=== PATIENT | male | born 1970 | race Caucasian/White ===

== ENCOUNTER 2018-04-12 11:53 | Emergency (ER) | payer MEDICAID ==
[~2018-04-12] VITALS: Ht 154.9 cm; Wt 49.9 kg
[2018-04-12 11:56] VITALS: BP 129/89
--- NOTE | 2018-04-12 12:00 | NUR ---
pt. brought in by ems from [facility] sent from facility for further eval of abnormal lab values; acute renal failure labs drawn 04/08/2018 BUN 62, CREATININE 2.2. pt. present with contractures of all extremities, rr even and unlabored. pt. is smiling. pt. warm and dry to touch. vss. pt. presents with clean diaper in place. er md notified. will continue to monitor. safety precautions implemented. caregiver at bedside.
[2018-04-12] MEDS ORDERED: NACL 0.9% 1,000 ML IV ONE (12:10)
--- NOTE | 2018-04-12 12:10 | NUR ---
# 14 FR Horn catheter . Immediate return of YELLOW URINE 20 ml urine noted. Bedside drainage bag placed below level of bladder. Urine sample collected and sent to lab. Pt tolerated procedure WELL.
[2018-04-12] MEDS ORDERED: SUCR1TAB35 PO (12:19)
[2018-04-12] MEDS ORDERED: [UNRECOGNIZED DRUG - CODE] (12:19)
[2018-04-12] MEDS ORDERED: METO-744 PO (12:19)
[2018-04-12] MEDS ORDERED: LANS15EC28 PO (12:19)
[2018-04-12] MEDS ORDERED: CHOL400T12 PO (12:19)
[2018-04-12] MEDS ORDERED: LORA0.5T6 PO (12:19)
[2018-04-12] MEDS ORDERED: DOCU-299 PO (12:19)
[2018-04-12] MEDS ORDERED: BISA5ECT43 PO (12:19)
[2018-04-12] MEDS ORDERED: HAL5 PO (12:19)
[2018-04-12] MEDS ORDERED: FERR325E14 PO (12:19)
[2018-04-12] MEDS ORDERED: BACL10TA4 PO (12:19)
[2018-04-12] MEDS ORDERED: ASCO500T93 PO (12:20)
--- NOTE | 2018-04-12 12:45 | NUR ---
pt. taken to ct scan via gurney by trade manager. caregiver at bedside.
[2018-04-12 13:03] LABS: BASOPHILS % (AUTO) 0.3 % (0.0-2.0); EOSINOPHILS # (AUTO) 0.1 K/uL (0-0.4); EOSINOPHILS % (AUTO) 1.7 % (0.0-4.0); HEMATOCRIT 42.4 % (36-52); HEMOGLOBIN 14.5 g/dL (12.0-18.0); LYMPHOCYTES # (AUTO) 1.2 K/uL (2.0-11.5); LYMPHOCYTES % (AUTO) 21.2 % (20.5-51.1); MEAN CORPUSCULAR HEMOGLOBIN 32 pg (27-31); MEAN CORPUSCULAR HGB CONC 34 g/dL (33-37); MEAN CORPUSCULAR VOLUME 93.5 fL (80-94); MONOCYTES # (AUTO) 0.5 K/uL (0.8-1.0); MONOCYTES % (AUTO) 9.3 % (1.7-9.3); NEUTROPHILS # (AUTO) 3.8 K/uL (1.8-7.7); NEUTROPHILS % (AUTO) 67.5 % (42.2-75.2); PLATELET COUNT (AUTO) 251 K/uL (140-450); RED BLOOD CELL COUNT(AUTO) 4.54 MIL/uL (4.20-6.10); RED CELL DISTRIBUTION WIDTH 12.7 % (11.6-13.7); WHITE BLOOD COUNT (AUTO) 5.7 K/uL (4.8-10.8)
[2018-04-12 13:17] LABS: PROTHROMBIN TIME 9.9 secs (10.8-13.4)
[2018-04-12 13:21] LABS: CARBON DIOXIDE 25.7 mmol/L (21-32); CREATININE 0.6 mg/dL (0.7-1.3); POTASSIUM 3.7 mmol/L (3.5-5.1)
[2018-04-12 13:31] LABS: ALBUMIN 3.3 g/dL (3.4-5.0); TOTAL BILIRUBIN 0.2 mg/dL (0.0-1.0)
[2018-04-12 14:03] VITALS: BP 106/75
--- NOTE | 2018-04-12 14:04 | NUR ---
Patient discharged with v/s stable. Written and verbal after care instructions given and explained. Patient CAREGIVER verbalized understanding, with caregiver. All questions addressed prior to discharge. Advised to follow up with PMD.
--- NOTE | 2018-04-12 14:37 | NUR ---
CAREGIVER STATED SHE FOUND A RIDE FOR PT. AWAITING ARRIVAL.
== END 2018-04-12 14:04 | disposition home or self-care (01) ==
LOC: MED 11:53
DX: R79.9 Abnormal finding of blood chemistry, unspecified (principal); K21.9 Gastro-esophageal reflux disease without esophagitis; Z79.899 Other long term (current) drug therapy
CPT/HCPCS: 36415; 74176; 80053; 85025; 85610; 85730; 96360; 99285; C1758; J7030

== ENCOUNTER 2019-10-08 10:06 | Emergency (ER) | payer MEDICAID ==
[~2019-10-08] VITALS: Ht 154.9 cm; Wt 52.2 kg
[~2019-10-08 10:06] MED LIST: ASCO500T93 PO; BACL10TA4 PO; BISA-188 PO; CHOL400T12 PO; DOCU-299 PO; FERR325E14 PO; HAL5 PO; LANS15EC28 PO; LORA0.5T6 PO; METO-744 PO; SUCR1TAB35 PO; [UNRECOGNIZED DRUG - CODE]
[2019-10-08 10:16] VITALS: BP 101/65
[2019-10-08] MEDS ORDERED: MORPHINE SULFATE 2 MG/ML SYR IVP ONE (10:20)
[2019-10-08] MEDS ORDERED: FLOR250 PO (10:40)
[2019-10-08] MEDS ORDERED: ESOM40EC PO (10:40)
[2019-10-08] MEDS ORDERED: SUCR1TAB35 PO (10:40)
[2019-10-08] MEDS ORDERED: MAGN2400 PO (10:40)
[2019-10-08] MEDS ORDERED: ACET-2619 PO (10:40)
[2019-10-08] MEDS ORDERED: ATOR10TA PO (10:40)
[2019-10-08] MEDS ORDERED: KETOROLAC 30 MG/ML VIAL IVP ONE (11:45)
[2019-10-08 12:46] VITALS: BP 103/59
== END 2019-10-08 12:47 | disposition home or self-care (01) ==
LOC: MED 10:06
DX: S92.001A Unspecified fracture of right calcaneus, initial encounter for closed fracture (principal); G82.50 Quadriplegia, unspecified; K21.9 Gastro-esophageal reflux disease without esophagitis; Z79.899 Other long term (current) drug therapy; W17.89XA Other fall from one level to another, initial encounter; Y93.89 Activity, other specified; Y92.89 Other specified places as the place of occurrence of the external cause; Y99.8 Other external cause status
CPT/HCPCS: 29515; 70450; 73521; 73610; 96374; 96375; 99284; J1885; J2270; Q0092

== ENCOUNTER 2021-04-17 12:01 | Emergency (ER) | payer MEDICAID ==
[~2021-04-17] VITALS: Ht 154.9 cm; Wt 52.2 kg
[~2021-04-17 12:01] MED LIST changes: +ACET-2619 PO; +ATOR10TA PO; +ESOM40EC PO; +FLOR250 PO; -LANS15EC28 PO; +MAGN2400 PO
[2021-04-17 12:03] VITALS: BP 108/75
--- NOTE | 2021-04-17 12:03 | NUR ---
PT BIBA AND TAKEN TO BED 12
--- NOTE | 2021-04-17 12:14 | NUR ---
50 Y MALE BIB FROM [facility]IV[facility] DUE TO CHOKING EARLIER TODAY ON BURRITO. PER EMS "PT WAS BEING FED BY CAREGIVER SMALL AMOUNTS OF A BURRITO WHEN SHE STARTED TO CHOKE. THE CAREGIVER PUSHED HIM TO THE SIDE WHEN HE STARTED TO SPIT UP." PER CAREGIVER AFTERWARDS PT WAS EXPERICNING ALOC. PER EMS PT IS NOW BACK TO BASELINE, LAUGHING AND LOOKING AROUND. PT BASELINE NON-VERBAL, GCS CURRENTLY 9. BREATH SOUNDS CLEAR AT THIS TIME. NO SIGNS OF DISCOMFORT NOTED PMH: CP, DEVELOPMENTAL DISABILITY NKA
--- NOTE | 2021-04-17 13:00 | NUR ---
PT TAKEN TO XRAY/CT VIA ARSEN
--- NOTE | 2021-04-17 13:03 | NUR ---
Adrienne johnson in ED - 04/17/21 at 1351 by [email or web address] ED BEDSIDE WITH PATIENT
--- NOTE | 2021-04-17 13:15 | NUR ---
# 15 FR Horn catheter utilizing sterile technique. Immediate return of 95 ml yellow urine noted. Urine sample collected and sent to lab. Pt tolerated procedure well.
--- NOTE | 2021-04-17 13:15 | NUR ---
CLARA HANDED TO CPT EDIN AT ER BEDSIDE
--- NOTE | 2021-04-17 13:28 | NUR ---
PT RETURNED TO BED [address] [facility] [facility]
[2021-04-17 13:56] LABS: APPEARANCE,URINE CLEAR (CLEAR); BILIRUBIN,URINE NEGATIVE (NEGATIVE); BLOOD, URINE NEGATIVE (NEGATIVE); COLOR,URINE YELLOW (YELLOW); LEUKOCYTE ESTERASE ,URINE NEGATIVE (NEGATIVE); NITRITE, URINE NEGATIVE (NEGATIVE); PH,URINE 7.5 (5.0-9.0); UGLUCOSE NEGATIVE (NEGATIVE)
--- NOTE | 2021-04-17 13:57 | NUR ---
Patient appears to be resting comfortably in bed. Vital Signs within normal limits. Respirations even and unlabored.
[2021-04-17 13:59] LABS: BASOPHILS % (AUTO) 0.3 % (0.0-2.0); EOSINOPHILS # (AUTO) 0.2 K/uL (0-0.4); EOSINOPHILS % (AUTO) 2.8 % (0.0-4.0); HEMOGLOBIN 14.6 g/dL (12.0-18.0); LYMPHOCYTES # (AUTO) 1.4 K/uL (2.0-11.5); LYMPHOCYTES % (AUTO) 23.4 % (20.5-51.1); MEAN CORPUSCULAR HEMOGLOBIN 33 pg (27-31); MEAN CORPUSCULAR HGB CONC 35 g/dL (33-37); MEAN CORPUSCULAR VOLUME 94.2 fL (80-94); MONOCYTES # (AUTO) 0.5 K/uL (0.8-1.0); MONOCYTES % (AUTO) 8.9 % (1.7-9.3); NEUTROPHILS # (AUTO) 3.9 K/uL (1.8-7.7); NEUTROPHILS % (AUTO) 64.6 % (42.2-75.2); PLATELET COUNT (AUTO) 297 K/uL (140-450); RED BLOOD CELL COUNT(AUTO) 4.46 MIL/uL (4.20-6.10); RED CELL DISTRIBUTION WIDTH 12.9 % (11.6-13.7)
[2021-04-17 14:19] LABS: ANION GAP 9.9 (8-16); CARBON DIOXIDE 29.5 mmol/L (21-32); CREATININE 0.6 mg/dL (0.6-1.3); POTASSIUM 4.4 mmol/L (3.5-5.1)
--- NOTE | 2021-04-17 14:51 | NUR ---
SPOKE WITH BRIAN LORD IN REGARDS TO PT CARE AND TRANSPORATION. PER BRIAN SHE WILL ARRANGE FOR PT TRANSPORATION AND CALL WITH AN ETA
--- NOTE | 2021-04-17 16:15 | NUR ---
Patient appears to be resting comfortably in bed. Vital Signs within normal limits. Respirations even and unlabored.
[2021-04-17 17:30] VITALS: BP 112/73
--- NOTE | 2021-04-17 17:30 | NUR ---
Patient discharged with v/s stable. Written and verbal after care instructions given and explained. Patient verbalized understanding. Wheel Chair Assisted with to fci. All questions addressed prior to discharge. Advised to follow up with PMD.
== END 2021-04-17 17:30 | disposition home or self-care (01) ==
LOC: MED 12:01
DX: T17.928A Food in respiratory tract, part unspecified causing other injury, initial encounter (principal); R41.82 Altered mental status, unspecified; K21.9 Gastro-esophageal reflux disease without esophagitis; I10 Essential (primary) hypertension; Z79.899 Other long term (current) drug therapy; X58.XXXA Exposure to other specified factors, initial encounter; Y93.89 Activity, other specified; Y92.89 Other specified places as the place of occurrence of the external cause; Y99.8 Other external cause status
CPT/HCPCS: 36415; 70450; 71045; 80048; 81003; 85025; 99285; Q0092

== ENCOUNTER 2021-10-06 08:45 | Inpatient (IN) | payer MEDICAID ==
[~2021-10-06] VITALS: Ht 154.9 cm; Wt 49.9 kg
[~2021-10-06 08:45] MED LIST changes: +LACT10CA GT; +LANS30EC68 GT; +TOP25 GT
[2021-10-06] MEDS ORDERED: NACL 0.9% 2,000 ML IV ONE (09:00)
[2021-10-06 09:18] VITALS: BP 112/63
--- NOTE | 2021-10-06 09:19 | NUR ---
ATTEMPTED EKG HOWEVER PT WAS SHAKING AND SCREAMING. A RESULT, ARTIFACTS WERE OBSERVED ON EKG RENDERING IT UNREADABLE. WILL ATTEMPT TO RETRY EKG ONCE PT CALMS DOWN. Addendum: 10/06/21 at 0942 by [email or web address] ATTEMPTED EKG HOWEVER PT WAS SHAKING AND SCREAMING. A RESULT, ARTIFACTS WERE OBSERVED ON EKG RENDERING IT UNREADABLE. WILL ATTEMPT TO RETRY EKG ONCE PT CALMS DOWN. ERMD NOTIFIED AND AWARE.
[2021-10-06] MEDS ORDERED: LORazepam 2 MG/ML VIAL IVP ONE (09:25)
[2021-10-06] MEDS ORDERED: cefTRIAXone 1,000 MG VIAL ONE (09:52)
[2021-10-06 10:51] LABS: BASOPHILS % (AUTO) 0.4 % (0.0-2.0); EOSINOPHILS % (AUTO) 0.7 % (0.0-4.0); HEMATOCRIT 39.9 % (36-52); HEMOGLOBIN 13.5 g/dL (12.0-18.0); LYMPHOCYTES # (AUTO) 0.8 K/uL (2.0-11.5); LYMPHOCYTES % (AUTO) 11.9 % (20.5-51.1); MEAN CORPUSCULAR HEMOGLOBIN 32 pg (27-31); MEAN CORPUSCULAR HGB CONC 34 g/dL (33-37); MEAN CORPUSCULAR VOLUME 93.3 fL (80-94); MONOCYTES # (AUTO) 0.7 K/uL (0.8-1.0); MONOCYTES % (AUTO) 10.6 % (1.7-9.3); NEUTROPHILS # (AUTO) 5.3 K/uL (1.8-7.7); NEUTROPHILS % (AUTO) 76.4 % (42.2-75.2); PLATELET COUNT (AUTO) 271 K/uL (140-450); RED BLOOD CELL COUNT(AUTO) 4.28 MIL/uL (4.20-6.10); RED CELL DISTRIBUTION WIDTH 13.1 % (11.6-13.7)
[2021-10-06 11:04] LABS: SALICYLATE < 2.8 mg/dL (2.8-20.0)
[2021-10-06 11:56] LABS: ALBUMIN 3.7 g/dL (3.4-5.0); ANION GAP 16.1 (8-16); ASPARTATE AMINOTRANSFERASE 30 U/L (15-37); CARBON DIOXIDE 24.6 mmol/L (21-32); CHLORIDE 103 mmol/L (98-107); CREATININE 0.6 mg/dL (0.6-1.3); GFR ARICAN-AMERICAN 184 mL/min (>90); GLUCOSE 112 mg/dL (74-106); POTASSIUM 3.7 mmol/L (3.5-5.1); SODIUM SERUM 140 mmol/L (136-145); TOTAL BILIRUBIN 0.3 mg/dL (0.0-1.0); UREA NITROGEN, BLOOD 8 mg/dL (7-18)
[2021-10-06] MEDS: DEXT 5% / NACL 0.45% 1,000 ML IV SCH ×2 (13:10→23:10)
[2021-10-06 13:26] LABS: ACETAMINOPHEN < 0.5 ug/ml (10-30)
[2021-10-06 13:50] VITALS: BP 73/47
--- NOTE | 2021-10-06 13:50 | NUR ---
PT ARRIVED ON TO UNIT VIA ARSEN, ACCOMPANIED BY ER NURSE AND TRANSPORTER. PT IS SLEEPING AT THIS TIME. RESPIRATIONS ARE EVEN AND UNLABORED. PT IS ON 5L 02 VIA NON-REBREATHER. PER [facility] VOICE TEACHER, PT HAS HX OF SLEEP APNEA. PT IS SNORING LOUDLY AT THIS TIME. PT IS NON-VERBAL AT BASELINE. ABD IS NONTENDER, NONDISTENDED. G TUBE NOTED TO L SIDE OF ABD. INTACT. PER ER NURSE, PT LAST BOWEL MOVEMENT WAS EARLIER TODAY. SKIN IS WARM, DRY, AND INTACT. PT HAS IV TO L HAND, 18G. MRSA SCREEN DONE, VITALS TAKEN. ALL SAFETY MEASURES IN PLACE. BED IN LOWEST POSITION. ADMISSION HISTORY TAKEN FROM [facility] VOICE TEACHER, PT IS NONVERBAL AND A&OX0. WILL CONTINUE TO MONITOR.
--- NOTE | 2021-10-06 14:12 | NUR ---
Patient will be admitted to care of DR VALLECILLO. Admited to TELE. Will go to room 121A. Belongings list completed. Report to AMOL.
[2021-10-06 15:45] LABS: APPEARANCE,URINE CLEAR (CLEAR); BILIRUBIN,URINE NEGATIVE (NEGATIVE); BLOOD, URINE 2+ (NEGATIVE); LEUKOCYTE ESTERASE ,URINE NEGATIVE (NEGATIVE); NITRITE, URINE NEGATIVE (NEGATIVE); PH,URINE 6.5 (5.0-9.0); UGLUCOSE NEGATIVE (NEGATIVE)
--- NOTE | 2021-10-06 15:45 | NUR ---
IV ACCESS TO R FA 22G PLACED. WILL CONTINUE TO MONITOR.
[2021-10-06 15:48] LABS: COLOR,URINE AMBER (YELLOW)
[2021-10-06 16:00] VITALS: BP 99/68
--- NOTE | 2021-10-06 16:22 | NUR ---
PT PULLED OUT IV TO RFA. WILL ATTEMPT ANOTHER IV ACCESS.
--- NOTE | 2021-10-06 17:45 | NUR ---
NEW IV ACCESS TO L WRIST, 24 G. WILL CONTINUE TO MONITOR.
[2021-10-06] MEDS ORDERED: MAGNESIUM HYDROXIDE GT/PO PRN (18:05)
[2021-10-06] MEDS ORDERED: bisacodyL 5 MG TABEC GT PRN (18:05)
[2021-10-06] MEDS ORDERED: LORazepam 2 MG/ML VIAL IVP PRN (18:05)
[2021-10-06] MEDS ORDERED: ACETAMINOPHEN 325 MG TAB GT SCH (18:05)
[2021-10-06] MEDS ORDERED: ONDANSETRON 4 MG/2 ML VIAL IVP PRN (18:05)
[2021-10-06] MEDS ORDERED: NON-FORMULARY ITEM (Metoprolol Succinate (Metoprolol Succinate Er) 25 MG) PO SCH (18:05)
[2021-10-06] MEDS ORDERED: METOPROLOL SUCCINATE 50 MG TABER PO SCH (18:33)
[2021-10-06] MEDS ORDERED: MAGNESIUM HYDROXIDE 2400 MG/30 ML UDC GT PRN (18:40)
[2021-10-06] MEDS ORDERED: MAGNESIUM HYDROXIDE 2400 MG/30 ML UDC PO PRN (18:40)
[2021-10-06] MEDS ORDERED: IPRATROPIUM 0.02% 0.5 MG/2.5 ML NEBU INH SCH (19:00)
[2021-10-06] MEDS ORDERED: ALBUTEROL 0.083% 2.5 MG/3 ML NEBU INH SCH (19:00)
--- NOTE | 2021-10-06 19:43 | NUR ---
ENDORSED PT TO HOTEL ASSISTANT GENERAL MANAGER NURSE FOR CONTINUITY OF CARE. PT IS STABLE.
--- NOTE | 2021-10-06 19:44 | NUR ---
RECEIVED REPORT FROM AM NURSE. PATIENT IS NON VERBAL, IN SEMI FOWLERS POSITION WITH EYES CLOSED. NO S/S OF RESPIRATORY DISTRESS. BREATHING REGULAR NON LABORED. ALL SAFETY MEASURES ARE IN PLACE. IVF D5NS INFUSING AT 100 ML/HR. O2 AT 4L NC SATING AT 100%. WILL CONTINUE TO MONITOR PT.
[2021-10-06 20:00] VITALS: BP 90/53
[2021-10-06] MEDS: ALBUTEROL SULFATE/IPRATROPIU 3 ML SOL IH SCH (20:29)
[2021-10-06] MEDS: ATORVASTATIN 20 MG TAB GT SCH (20:52)
[2021-10-06] MEDS: SUCRALFATE 1 GM TAB GT SCH (20:52)
--- NOTE | 2021-10-06 20:52 | NUR ---
ALL 2100 SCHEDULED MEDICATIONS ADMINISTERED PER MD ORDERED.
[2021-10-06] MEDS: HALOPERIDOL 5 MG TAB GT SCH (20:53)
[2021-10-06] MEDS ORDERED: CRUSHER, PILL MC ONE (20:56)
[2021-10-06] MEDS: VITAMIN D 400 IU TAB GT SCH (20:57)
[2021-10-06] MEDS ORDERED: FERROUS SULFATE 325 MG TABEC PO SCH (21:00)
[2021-10-06] MEDS ORDERED: ASCORBIC ACID 500 MG TAB GT SCH (21:00)
[2021-10-06] MEDS ORDERED: DOCUSATE SODIUM 100 MG GELCAP PO SCH (21:00)
--- NOTE | 2021-10-06 22:48 | NUR ---
BP - 87/[address] VALLECILLO, AWAITING FOR ORDERS.
--- NOTE | 2021-10-06 23:50 | NUR ---
DR. VALLECILLO CALLED BACK WITH ORDERS NOTED . CARRIED OUT.
[2021-10-06] MEDS ORDERED: NACL 0.9% 1,000 ML IV SCH (23:55)
[2021-10-07] VITALS: BP 141/85
[2021-10-07] MEDS: DEXT 5% / NACL 0.45% 1,000 ML IV SCH ×4 (00:11→13:38)
[2021-10-07] MEDS: ALBUTEROL SULFATE/IPRATROPIU 3 ML SOL IH SCH ×4 (01:00→19:36)
[2021-10-07 04:00] VITALS: BP 125/65
--- NOTE | 2021-10-07 05:58 | NUR ---
PATIENT IS AGITATED AND RESTLESS, ATIVAN PRN ADMINISTERED.
[2021-10-07 06:22] LABS: BASOPHILS % (AUTO) 0.4 % (0.0-2.0); EOSINOPHILS # (AUTO) 0.1 K/uL (0-0.4); EOSINOPHILS % (AUTO) 1.3 % (0.0-4.0); HEMOGLOBIN 12.2 g/dL (12.0-18.0); LYMPHOCYTES # (AUTO) 0.9 K/uL (2.0-11.5); LYMPHOCYTES % (AUTO) 12.5 % (20.5-51.1); MEAN CORPUSCULAR HEMOGLOBIN 32 pg (27-31); MEAN CORPUSCULAR HGB CONC 34 g/dL (33-37); MEAN CORPUSCULAR VOLUME 94.3 fL (80-94); MONOCYTES # (AUTO) 0.6 K/uL (0.8-1.0); MONOCYTES % (AUTO) 8.2 % (1.7-9.3); NEUTROPHILS # (AUTO) 5.3 K/uL (1.8-7.7); NEUTROPHILS % (AUTO) 77.6 % (42.2-75.2); PLATELET COUNT (AUTO) 255 K/uL (140-450); RED BLOOD CELL COUNT(AUTO) 3.82 MIL/uL (4.20-6.10); RED CELL DISTRIBUTION WIDTH 13.2 % (11.6-13.7); WHITE BLOOD COUNT (AUTO) 6.8 K/uL (4.8-10.8)
[2021-10-07 06:25] LABS: ANION GAP 13.5 (8-16); CARBON DIOXIDE 22.9 mmol/L (21-32); CREATININE 0.4 mg/dL (0.6-1.3); POTASSIUM 3.4 mmol/L (3.5-5.1)
--- NOTE | 2021-10-07 07:25 | NUR ---
ENDORSED PATIENT TO AM NURSE FOR CONTINUITY OF CARE.
--- NOTE | 2021-10-07 07:28 | NUR ---
RECEIVED REPORT FROM MACHINE CLOTHING REPLACER NURSE. PT. IS AOX0, ON 4L O2 N. PT IS BED BOUND. PT IS NPO. IV SITE ON RIGHT HAND 18G, AND LEFT WRIST 24G. SKIN IS INTACT. INFORMED BEATRICE ANDRES ABOUT PT TACHYCARDIA, AND REQUESTED TO CHANGE COLACE AND FERROUS SULFATE TO BE CHANGED TO LIQUID FORM. DISCUSSED PLAN OF CARE. ALL SAFETY MEASURES DONE. WILL CONTINUE TO MONITOR.
[2021-10-07] MEDS ORDERED: bisacodyL 5 MG TABEC GT PRN (07:31)
[2021-10-07] MEDS ORDERED: ACETAMINOPHEN 650 MG/20.3 ML UDC GT PRN (07:35)
[2021-10-07 08:00] VITALS: BP 118/68
[2021-10-07] MEDS: LACTOBACILLUS RHAMNOSUS GG 1 EACH CAP GT SCH (08:40)
[2021-10-07] MEDS: SUCRALFATE 1 GM TAB GT SCH ×2 (08:41→22:55)
[2021-10-07] MEDS: LANSOPRAZOLE 30 MG CAPDR GT SCH (08:41)
[2021-10-07] MEDS: FERROUS SULFATE 300 MG/5 ML UDC GT SCH ×2 (08:41→22:54)
[2021-10-07] MEDS: DOCUSATE 100 MG/10 ML UDC GT SCH ×2 (08:41→22:54)
[2021-10-07] MEDS: BACLOFEN 10 MG TAB GT SCH ×3 (08:42→17:05)
[2021-10-07] MEDS: LORazepam 0.5 MG TAB GT SCH (08:42)
[2021-10-07] MEDS: HALOPERIDOL 5 MG TAB GT SCH ×2 (08:43→22:58)
[2021-10-07] MEDS: ASCORBIC ACID 500 MG/5 ML ORASYR GT SCH ×2 (08:44→23:02)
[2021-10-07] MEDS: SORBITOL 70% 30 ML UDC GT SCH (08:44)
[2021-10-07] MEDS: METOPROLOL SUCCINATE 50 MG TABER PO SCH (08:44)
[2021-10-07] MEDS: VITAMIN D 400 IU TAB GT SCH ×2 (08:46→22:57)
[2021-10-07] MEDS ORDERED: NON-FORMULARY ITEM (Saccharomyces Boulardii* (Florastor*) 250 MG) GT SCH (09:00)
[2021-10-07] MEDS ORDERED: LACTOBACILLUS RHAMNOSUS GG 1 EACH CAP GT SCH (09:00)
[2021-10-07] MEDS ORDERED: TOPIRAMATE 25 MG TAB GT SCH (09:00)
[2021-10-07] MEDS ORDERED: NON-FORMULARY ITEM (Esomeprazole Magnesium* (Nexium*) 1 CAP) GT SCH (09:00)
[2021-10-07 12:00] VITALS: BP 100/59
--- NOTE | 2021-10-07 13:20 | NUR ---
PT K IS 3.4. RELAYED IT TO BEATRICE ANDRES IF PT CAN HAVE POTASSIUM MEDS.
--- NOTE | 2021-10-07 13:39 | NUR ---
STARTED NEW IV 5% DEX AND .45% NACL, RUNNING AT 100ML/HR.
--- NOTE | 2021-10-07 13:50 | NUR ---
STEFFEN CALLED, ASKING ABOUT PT'S CONDITION. RELAYED THAT PT STILL NEEDS TO DO SOME BLOOD TESTS, FOR PT.
--- NOTE | 2021-10-07 14:41 | NUR ---
DC PLANNING: THE PATIENT WAS BIB[facility] FROM [facility] WITH C/O ALOC WITH YELLING THAT THE FACILITY STAFF THROUGH WAS RELATED TO PAIN. H/O DEVELOPMENTAL DELAY, ENCEPHALOPATHY, ANEMIA, GERD, HTN, DYSPHAGIA AND G-TUBE PLACEMENT. UA POSITIVE FOR KETONES AND BLOOD, CXR SHOWS AIR FILLED LOOPS OF BOWEL, CT HEAD NEGATIVE FOR ACUTE FINDINGS. CONSULTS WITH PULMONOLOGY, NEUROLOGY AND CARDIOLOGY ORDERED PATIENTS HR HAS BEEN ELEVATED TO 140S. CM SPOKE WITH SERGEY GAN FROM [facility] ([phone]), THE PATIENT REMAINS NON-VERBAL AND TOTAL CARE. HE IS TAKING FOOD ORALLY AND RECEIVING FLUIDS THROUGH HIS G-TUBE. THE FACILITY WAS CONCERNED ABOUT A REOCCURRENCE OF HIS SBO AND GI ISSUES BECAUSE OF HIS BEHAVIOR WHICH IS WHY THEY SENT HIM. CM ENDORSED THAT HE IS BEING WORKED UP BUT DOES TURN HIS HEAD AND SMILES WHEN SPOKEN TO BY CM. THE FACILITY WILL ARRANGE FOR TRANSPORT WHEN HE IS READY TO DISCHARGE, CM WILL FOLLOW FOR NEEDS. Addendum: 10/08/21 at 0912 by Carmen Howard CM DC PLANNING: DC ORDER RECEIVED, SUNNY SPOKE WITH SERGEY GAN ([phone]) WHO ASKS THAT REPORT BE GIVEN TO HER. SHE WILL ALSO SET UP TRANSPORT AND CALL CM BACK WITH THAT INFORMATION. SUNNY ALSO SPOKE WITH THE PATIENTS NURSE TO ENDORSE DC. CM WILL FOLLOW.
--- NOTE | 2021-10-07 15:00 | NUR ---
ORDERED K-DUR 40MEG FOR PT, SINCE K IS LOW 3.4.
[2021-10-07 16:00] VITALS: BP 117/81
[2021-10-07] MEDS ORDERED: POTASSIUM CHLORIDE 20% 40 MEQ/15 ML UDC GT SCH (16:00)
--- NOTE | 2021-10-07 16:00 | NUR ---
PT IS AWAKE, BREATHING UNLABORED. WILL CONTINUE TO MONITOR.
--- NOTE | 2021-10-07 16:40 | NUR ---
10/07/21 RD INITIAL ASSESSMENT COMPLETED PLEASE REFER TO NUTRITION ASSESSMENT UNDER CARE ACTIVITY FOR ESTIMATED NUTRITIONAL NEEDS. 1.WHEN IF MEDICALLY APPROPRIATE INITIATE GT FEEDING JEVITY 1.2 START @ 30 ML/HR INCREASE 10 ML Q 4 HRS SHIRLEY TO GOAL 50 ML, FREE WATER FLUSH 100 ML Q 8 HRS. 2.REFER TO MD TO CONSIDER CANTEEN OPERATOR EVALUATION. 3. RD TO FOLLOW-UP 2-3 DAYS, HIGH RISK RAYMUNDO SHELBY RD
--- NOTE | 2021-10-07 19:25 | NUR ---
GAVE REPORT TO BLANCHARD GRINDER OPERATOR NURSE. PT V/S STABLE. DISCUSSED PLAN OF CARE.
--- NOTE | 2021-10-07 19:30 | NUR ---
RECEIVED REPORT AT BEDSIDE FROM RN DAYSHIFT NURSE FOR CONTINUITY OF CARE. PT LYING IN BED AOX0-1. HE IS ALERT AND APHASIAC , HE HAS A 2 LITER 02 VIA N/C. HOB UP PT HAS BILATERAL CONTRACTIONS. IV SITES ARE R HAND 18 GUAGE AND L WRIST 24G . PT IS RUNNING D5 1/2 NORMAL SALINE AT 100MLS/HR. ALL ORDERED PRECAUTIONS IN PLACE.
[2021-10-07 20:00] VITALS: BP 108/75
--- NOTE | 2021-10-07 21:30 | NUR ---
PT GIVEN ALL ORDERED MEDS VIA GT. POSITIVE PLACEMENT OF G TUBE PT UNABLE TO VERBALIZE UNDERSTANDING OF ORDERED MEDICATION. ALL ORDERED PRECAUTIONS IN PLACE.
[2021-10-07 22:05] LABS: WBC,URINE NONE SEEN /HPF (0-5)
--- NOTE | 2021-10-07 22:30 | NUR ---
PT WAS TURNED, CHANGED AND REPOSITIONED IN BED. ALL ORDERED PRECAUTIONS IN PLACE.
[2021-10-07] MEDS: ATORVASTATIN 20 MG TAB GT SCH (22:56)
[2021-10-07] MEDS ORDERED: NACL 0.9% 1,000 ML IV ONE (23:55)
[2021-10-08] VITALS: BP 101/68
--- NOTE | 2021-10-08 00:30 | NUR ---
PT IN BED 02 CONTINUES AT 2 LITERS VIA N/C. V/S FOLLOWS: T 97.1 P 131 R 15 B/P 112/60 02 96%. ALL ORDERED PRECAUTIONS IN PLACE.
[2021-10-08] MEDS: ALBUTEROL SULFATE/IPRATROPIU 3 ML SOL IH SCH ×2 (01:00→07:18)
--- NOTE | 2021-10-08 01:00 | NUR ---
NEW BAG OF D5 1/2 NS HUNG AND RUNNING AT 100MLS/HR ORDERED.
--- NOTE | 2021-10-08 01:30 | NUR ---
RT TO HERE TO CHECK PT. NEB TREATMENT DUE, HOWEVER PT IS STATING AT 96% AND HEAR RATE IS TACHY, NEB TREATMENT WILL BUMP UP HEART RATE HIGHER. NEB TREATMENT HELD AT THIS TIME.
[2021-10-08 04:00] VITALS: BP 104/64
--- NOTE | 2021-10-08 04:30 | NUR ---
CLEANED TURNED AND REPOSITIONED PT IN BED V/S FOLLOWS: T 98.1 P 100 R 19 B/P 104/64 02 99% ON 2 LITERS VIA N/C. ORAL CARE PROVIDED.
[2021-10-08 05:26] LABS: BASOPHILS % (AUTO) 0.3 % (0.0-2.0); EOSINOPHILS # (AUTO) 0.1 K/uL (0-0.4); EOSINOPHILS % (AUTO) 1.1 % (0.0-4.0); HEMOGLOBIN 13.4 g/dL (12.0-18.0); LYMPHOCYTES # (AUTO) 1.2 K/uL (2.0-11.5); LYMPHOCYTES % (AUTO) 16.9 % (20.5-51.1); MEAN CORPUSCULAR HEMOGLOBIN 32 pg (27-31); MEAN CORPUSCULAR HGB CONC 34 g/dL (33-37); MEAN CORPUSCULAR VOLUME 92.5 fL (80-94); MONOCYTES # (AUTO) 0.8 K/uL (0.8-1.0); MONOCYTES % (AUTO) 12.1 % (1.7-9.3); NEUTROPHILS # (AUTO) 4.8 K/uL (1.8-7.7); NEUTROPHILS % (AUTO) 69.6 % (42.2-75.2); PLATELET COUNT (AUTO) 258 K/uL (140-450); RED BLOOD CELL COUNT(AUTO) 4.22 MIL/uL (4.20-6.10); RED CELL DISTRIBUTION WIDTH 13.1 % (11.6-13.7); WHITE BLOOD COUNT (AUTO) 6.9 K/uL (4.8-10.8)
[2021-10-08 05:50] LABS: ALBUMIN 3.4 g/dL (3.4-5.0); ANION GAP 13.7 (8-16); CARBON DIOXIDE 22.7 mmol/L (21-32); CREATININE 0.4 mg/dL (0.6-1.3); POTASSIUM 3.4 mmol/L (3.5-5.1); TOTAL BILIRUBIN 0.4 mg/dL (0.0-1.0)
[2021-10-08] MEDS: DEXT 5% / NACL 0.45% 1,000 ML IV SCH (05:54)
--- NOTE | 2021-10-08 07:15 | NUR ---
RECEIVED PT FROM FREIGHT DELIVERY DRIVER NURSE FOR CONTINUITY OF CARE. RT AT BEDSIDE WITH PT AT THIS TIME. PT RECEIVING BREATHING TREATMENT. NO DISTRESS NOTED. PT TOLERATING IT WELL. PT ON CLIENT DIRECTOR. IV SITE ON RH 18G AND LEFT HAND 24G RUNNING D5 1/2NS AT 100 ML/HR. SAFETY PRECAUTIONS IN PLACE. CALL LIGHT WITHIN REACH. WILL CONTINUE TO MONITOR.
--- NOTE | 2021-10-08 07:30 | NUR ---
PT IS DONE WITH HIS SCHEDULED BREATHING TREATMENT. RT PUT PT NOW IN ROOM AIR. PT TOLERATING IT WELL, SATTING AT 98% WILL CONTINUE TO MONITOR.
[2021-10-08 08:00] VITALS: BP 108/64
--- NOTE | 2021-10-08 08:13 | NUR ---
PT. WITH LOW GRZEGORZ SCALE AT MODERATE TO HIGH RISK, CONTINUE TO FOLLOW PRESSURE INJURY PREVENTION INTERVENTIONS. -POSITIONING: TURN AND REPOSITION PATIENT Q 2H OR SOONER USE PILLOWS TO KEEP BONY PROMINENCES FROM DIRECT CONTACT WITH SURFACES USE REPOSITIONING WEDGES TO PROVIDE 30-DEGREE ANGLE FOR SIDE LYING POSITIONS OFFLOADING OR FOAM DRESSING TO ALL TUBING TO PREVENT MEDICAL DEVICES RELATED PRESSURE INJURY -RE-EVALUATING AND MANAGING INCONTINENCE MONITOR SKIN CONDITION DURING POSITION CHANGE DO NOT MASSAGE REDNESS, BONY PROMINENCES FREQUENT CECLIY-CARE AND PROVIDE BARRIER CREAMS PRN IF SOILING MOISTURE CONTROL BY OFFER BED RUSSO/URINAL /ABSORBENT PAD TO WICK AND HOLD MOISTURE KEEP SKIN DRY AND PROTECT FROM FRICTION -MANAGE FRICTION/SHEAR/MOBILITY KEEP HOB AT THE LOWEST LEVEL OF ELEVATION NO MORE THAN 30 DEGREE UNLESS OTHERWISE CONTRAINDICATED USE LIFT SHEET OR TRANSFER DEVICE TO MOVE PATIENT AND PREVENT LATERAL SHEER. PROTECT HEELS, ELBOWS BONY PROMINENCES WITH SKIN BERRIES OR FOAM DRESSING IF EXPOSED TO FRICTION OFFLOAD BILATERAL HEELS BY PLACING PILLOWS UNDER CALVES AT ALL TIMES, UNLESS OTHERWISE CONTRAINDICATED -PRESSURE REDISTRIBUTION SURFACE THERAPY MADINA ISOFLEX MATTRESS -NUTRITION: PLEASE FOLLOW RD RECOMMENDATIONS AND OFFER NUTRITION SUPPLEMENTS IF ORDERED. PLEASE CONTACT WOUND CARE NURSE FOR ANY QUESTION AND CHANGE OF WOUND CONDITION.
--- NOTE | 2021-10-08 08:51 | NUR ---
DR VALLECILLO AT BEDSIDE.
[2021-10-08] MEDS ORDERED: POTASSIUM CHLORIDE 10 MEQ TABER PO SCH (09:15)
[2021-10-08] MEDS: LANSOPRAZOLE 30 MG CAPDR GT SCH (09:23)
[2021-10-08] MEDS: BACLOFEN 10 MG TAB GT SCH (09:24)
[2021-10-08] MEDS: LORazepam 0.5 MG TAB GT SCH (09:24)
[2021-10-08] MEDS: METOPROLOL SUCCINATE 50 MG TABER PO SCH (09:24)
[2021-10-08] MEDS: HALOPERIDOL 5 MG TAB GT SCH (09:24)
[2021-10-08] MEDS: DOCUSATE 100 MG/10 ML UDC GT SCH (09:26)
[2021-10-08] MEDS: LACTOBACILLUS RHAMNOSUS GG 1 EACH CAP GT SCH (09:26)
[2021-10-08] MEDS: FERROUS SULFATE 300 MG/5 ML UDC GT SCH (09:26)
[2021-10-08] MEDS: SUCRALFATE 1 GM TAB GT SCH (09:28)
[2021-10-08] MEDS: VITAMIN D 400 IU TAB GT SCH (09:28)
[2021-10-08] MEDS: ASCORBIC ACID 500 MG/5 ML ORASYR GT SCH (09:29)
[2021-10-08] MEDS: SORBITOL 70% 30 ML UDC GT SCH (09:34)
--- NOTE | 2021-10-08 10:00 | NUR ---
ADMINISTERED SCHEDULED MORNING MEDS. PT TOLERATED WELL. WILL CONTINUE TO MONITOR.
--- NOTE | 2021-10-08 10:31 | NUR ---
GAVE REPORT TO SERGEY OF [facility]. SAID THAT TIME OF PICK-UP IS 12:00 NN.
[2021-10-08 10:42] VITALS: BP 108/64
[2021-10-08 12:40] VITALS: BP 104/66
--- NOTE | 2021-10-08 12:50 | NUR ---
P DC TO [facility]. PT LEFT VIA TRANSPORTATION. PT PICKED-UP BY TRANSPORTATION STAFF VIA WHEELCHAIR. REMOVED IV CATHETER IS INTACT. REMOVED WRIST BAND. ALL BELONGINGS TAKEN UPON DISCHARGED. PT IS STABLE.
== END 2021-10-08 12:50 | DRG 243 ==
LOC: MED 08:45 → MTU 13:06
PROVIDERS: ADMIT Preventive Medicine Preventive Medicine/Occupational Environmental Medicine; ATTEND Preventive Medicine Preventive Medicine/Occupational Environmental Medicine
DX: K21.9 Gastro-esophageal reflux disease without esophagitis (principal); G93.41 Metabolic encephalopathy; G82.50 Quadriplegia, unspecified; E87.6 Hypokalemia; I47.1 Supraventricular tachycardia; D64.9 Anemia, unspecified; E55.9 Vitamin D deficiency, unspecified; E78.5 Hyperlipidemia, unspecified; I10 Essential (primary) hypertension; K59.00 Constipation, unspecified; R13.10 Dysphagia, unspecified; G40.909 Epilepsy, unspecified, not intractable, without status epilepticus; F41.9 Anxiety disorder, unspecified; F91.9 Conduct disorder, unspecified; Z20.822 Contact with and (suspected) exposure to COVID-19; Z93.1 Gastrostomy status
CPT/HCPCS: 36415; 70450; 71045; 80048; 80053; 81001; 82140; 83605; 84484; 85025; 87040; 87081; 87086; 93005; 94640; 96374; 96375; 99291; G0480; J0696; J1630; J2060; J7030

== ENCOUNTER 2021-10-17 12:56 | Emergency (ER) | payer MEDICAID ==
[~2021-10-17] VITALS: Ht 154.9 cm; Wt 52.2 kg
[2021-10-17 12:56] VITALS: BP 123/69
[~2021-10-17 12:56] MED LIST changes: -TOP25 GT
--- NOTE | 2021-10-17 12:58 | NUR ---
BIBA BLS TO ER BED 5
[2021-10-17] MEDS ORDERED: NACL 0.9% 1,000 ML IV ONE (13:30)
--- NOTE | 2021-10-17 13:54 | NUR ---
RECEIVED REPORT FROM MILL HAND PLATE MILL AT [facility] ,JULES SIBLEY . SHE STATED PT HAD DENTAL WORK "SEVERAL " WEEKS AGO AND WAS TOLD PT HAD LOOSE CROWNS AND FRONT TEETH. PT HAS NOT BEEN RESEEN SINCE. SHE STATES PT WAS "SCREAMING AND YELLING" YESTERDAY AFTERNOON AND INDICATED PAIN IN "BOCA" AND GIVEN PRN TYLENOL . PT HAD OVERNIGHT RELIEF. PER JULES, PT RESUMED WITH YELLING THIS MORNING AND STARTED PUNCHING HIS FACE AROUND NOON TODAY.
[2021-10-17 14:23] LABS: BASOPHILS % (AUTO) 0.7 % (0.0-2.0); EOSINOPHILS # (AUTO) 0.1 K/uL (0-0.4); EOSINOPHILS % (AUTO) 1.9 % (0.0-4.0); HEMATOCRIT 40.4 % (36-52); HEMOGLOBIN 13.6 g/dL (12.0-18.0); LYMPHOCYTES # (AUTO) 0.9 K/uL (2.0-11.5); LYMPHOCYTES % (AUTO) 23.2 % (20.5-51.1); MEAN CORPUSCULAR HEMOGLOBIN 32 pg (27-31); MEAN CORPUSCULAR HGB CONC 34 g/dL (33-37); MEAN CORPUSCULAR VOLUME 93.8 fL (80-94); MONOCYTES # (AUTO) 0.4 K/uL (0.8-1.0); MONOCYTES % (AUTO) 10.8 % (1.7-9.3); NEUTROPHILS # (AUTO) 2.5 K/uL (1.8-7.7); NEUTROPHILS % (AUTO) 63.4 % (42.2-75.2); PLATELET COUNT (AUTO) 250 K/uL (140-450); RED BLOOD CELL COUNT(AUTO) 4.31 MIL/uL (4.20-6.10); RED CELL DISTRIBUTION WIDTH 13.4 % (11.6-13.7); WHITE BLOOD COUNT (AUTO) 3.9 K/uL (4.8-10.8)
[2021-10-17] MEDS ORDERED: MORPHINE SULFATE 4 MG/ML SYR IVP ONE (14:40)
[2021-10-17 15:06] LABS: ALBUMIN 3.4 g/dL (3.4-5.0); ANION GAP 9.3 (8-16); CARBON DIOXIDE 28.4 mmol/L (21-32); CREATININE 0.5 mg/dL (0.6-1.3); POTASSIUM 3.7 mmol/L (3.5-5.1); TOTAL BILIRUBIN 0.2 mg/dL (0.0-1.0)
[2021-10-17 15:34] VITALS: BP 132/72
[2021-10-17] MEDS ORDERED: PIPERACILLIN/TAZOBACTAM 3.375 GM in DEXTROSE 5% 50 ML IV ONE (16:45)
[2021-10-17] MEDS ORDERED: AMOX-999 PO (16:46)
[2021-10-17] MEDS ORDERED: OLANZapine 10 MG VIAL IM ONE (17:00)
[2021-10-17] MEDS ORDERED: PIPERACILLIN/TAZOBACTAM 3.375 GM VIAL IV ONE (17:03)
[2021-10-17] MEDS ORDERED: WATER STERILE 10 ML MC ONE (17:06)
--- NOTE | 2021-10-17 17:31 | NUR ---
MOLD WORKER AT [facility] , JULES PAYNE CALLED AND NOTIFIED OF PT PENDING DISCHARGE. TRANSPORTATION PENDING
--- NOTE | 2021-10-17 17:33 | NUR ---
REPORT GIVEN TO JULIETH FLETCHER AT [facility].
--- NOTE | 2021-10-17 17:36 | NUR ---
PT TRANSPORT COMFIRMED. [facility] TRANSPORT EXPECTED BETWEEN [phone].
--- NOTE | 2021-10-17 18:17 | NUR ---
Patient discharged with v/s stable. Written and verbal after care instructions FOR CELLULITIS given and explained. Patient Ambulance Transport with to care home. All questions addressed prior to discharge. ID band removed. Patient advised to follow up with PMD. Rx of AMOXICILLIN given. PT REPORT GIVEN TO JULIETH FLETCHER PRIOR TO DISCHARGE .
--- NOTE | 2021-10-17 18:17 | NUR ---
2 IVs removed, both catheters intact and site benign. Applied folded 4x4 gauze and tape to stop bleeding.
== END 2021-10-17 18:17 | disposition home or self-care (01) ==
LOC: MED 12:56
DX: L03.211 Cellulitis of face (principal); I10 Essential (primary) hypertension; Z79.2 Long term (current) use of antibiotics; Z79.899 Other long term (current) drug therapy
CPT/HCPCS: 70487; 80053; 82550; 83605; 83690; 85025; 87040; 96361; 96365; 96372; 96375; 99285; J2270; J2543; J3490; J7030; Q9967

== ENCOUNTER 2022-10-21 10:25 | Emergency (ER) | payer MEDICAID ==
[~2022-10-21] VITALS: Ht 165.1 cm; Wt 59.0 kg
[2022-10-21 10:25] VITALS: BP 117/87
[~2022-10-21 10:25] MED LIST changes: +AMOX-999 PO; +MAGN1200 PO; -MAGN2400 PO
--- NOTE | 2022-10-21 10:30 | NUR ---
MOSHE SPARKS TO ER BED 12
--- NOTE | 2022-10-21 10:30 | NUR ---
PLACED IN BED 12
[2022-10-21] MEDS ORDERED: KEFSUS GT (11:08)
--- NOTE | 2022-10-21 11:20 | NUR ---
CONTACTED [facility]. INFORMED THAT PATIENT READY FOR DISCHARGE, NO ETA PROVIDED.
--- NOTE | 2022-10-21 12:40 | NUR ---
RECEIVED CALL FROM BRIAN LORD- HECTOR FERNANDEZ FOR [employer] PERSON 330-4PM WITH [email or web address] TRANSPORT
[2022-10-21 14:00] VITALS: BP 108/79
--- NOTE | 2022-10-21 14:01 | NUR ---
Patient discharged with v/s stable. Written and verbal after care instructions given and explained. Patient alert, oriented and verbalized understanding of instructions. Ambulance Transport with to assisted. All questions addressed prior to discharge. ID band removed. Patient advised to follow up with PMD. Rx of CEPHALEXIN given. Patient educated on indication of medication including possible reaction and side effects. Opportunity to ask questions provided and answered.
== END 2022-10-21 14:00 | disposition home or self-care (01) ==
LOC: MED 10:25
DX: L03.011 Cellulitis of right finger (principal); I10 Essential (primary) hypertension; Z79.899 Other long term (current) drug therapy
CPT/HCPCS: 99283

== ENCOUNTER 2023-06-17 07:51 | Emergency (ER) | payer MEDICAID, OTHER ==
[~2023-06-17] VITALS: Ht 154.9 cm; Wt 63.5 kg
[~2023-06-17 07:51] MED LIST changes: +KEFSUS GT
[2023-06-17 07:55] VITALS: BP 115/64; PULSE 107; RESP 16; TEMP 97; O2SAT 95
[2023-06-17 12:54] VITALS: BP 121/71; PULSE 94; RESP 14; TEMP 96.9; O2SAT 98
== END 2023-06-17 12:54 ==
LOC: MED 07:51
DX: K94.23 Gastrostomy malfunction (principal); I10 Essential (primary) hypertension; Z79.899 Other long term (current) drug therapy
CPT/HCPCS: 82948; 99283

== ENCOUNTER 2024-02-06 23:07 | Emergency (ER) | payer OTHER ==
[~2024-02-06] VITALS: Ht 157.5 cm; Wt 44.0 kg
[~2024-02-06 23:07] MED LIST changes: -METO-744 PO; +METO25TE47 PO; +SUCR-3 PO; -SUCR1TAB35 PO
[2024-02-06 23:12] VITALS: BP 136/82; PULSE 90; RESP 14; TEMP 97.3; O2SAT 99
[2024-02-07 02:19] VITALS: BP 118/80; PULSE 84; RESP 17; TEMP 97.7; O2SAT 99
== END 2024-02-07 02:19 ==
LOC: MED 23:07
DX: K94.13 Enterostomy malfunction (principal); I10 Essential (primary) hypertension; Z79.899 Other long term (current) drug therapy
CPT/HCPCS: 43762; 74018; 99284; Q0092